=== PATIENT | female | born 1970 | race African-American/Black ===

== ENCOUNTER 2023-08-26 08:02 | Outpatient (AMB) | payer OTHER, SELFPAY ==
[2023-08-26 10:18] VITALS: BMI 30.7
--- NOTE | 2023-08-26 10:18 | A.OFFVIS_ITS ---
Intake VS Expanded 08/26/23 10:18 Height 5 ft 8.5 in Weight 205 lb BMI 30.7 Intake Visit Reasons: TV Gastric Balloon Allergies No Known Allergies Allergy (Verified 08/26/23 10:19) Medication List - Last Reconciled 08/26/23 by Jonah Briggs MD amlodipine 5 mg PO DAILY biotin 2,500 mcg PO DAILY citalopram 5 mg PO DAILY lactobacillus combination no.4 (Probiotic) 3,000 mmu cells PO DAILY metformin ER 500 mg PO BID valacyclovir 500 mg PO DAILY HPI TV Gastric Balloon HPI Details Start time: 10.13am, End time: 11.01am ?I spent 43 minutes speaking with the patient on the phone plus an additional 5 minutes reviewing and updating records for a total of 48 minutes HPI Comments History of Present Illness Details Is interested in the Orbera gastric balloon Has tried several diets in the past as well as Wegovy, Metformin and Phentermine without success PFSH Medical History (Updated 08/26/23 @ 10:51 by Jonah Briggs MD) Hyperlipidemia Depression Herpes simplex Prediabetes Hypertension Surgical History (Updated 08/26/23 @ 08:07 by Yuly Car CMA) Hx of eye surgery Hx of wisdom tooth extraction Hx of inguinal hernia surgery Assessment & Plan Assessment & Plan (1) Obesity: Code(s): E66.9 - Obesity, unspecified Plan: 1.? Plan for endogastric balloon therapy. We discussed the process in detailed including the need for endoscopy to place the balloon as well as to remove 6 months later under sedation or general anesthesia. We discussed the need to be on a PPI and a multivitamin throughout the balloon therapy. We discussed the potential risks and complications of the balloon including premature removal, premature balloon with potential balloon migration and bowel obstructions, gastric ulcer, GI bleeding, gastric or esophageal perforation, pancreatitis. Spe cifically for the premature balloon deflation we discussed the instillation of methylene blue into the balloon so in case of premature deflation the patient's urine would be discolored. We also discussed the potential symptoms the patient may experience the first few days until the stomach is fully adjusted to the balloon, including nausea, vomiting, abdominal cramping, GERD, dehydration that may require IV hydration, fatigue, lack of energy, excessive fullness, or burping. I reassured her that these symptoms are temporary and subside completely within the first week. We also discussed that the expected weight loss is about 25% of her initial weight which corresponds to about 51lbs. We also discussed the possibility of inadequate weight loss. I emphasized the importance of purchasing a body composition scale and the need for weekly weight measurements and communication with me. We also discussed the need for a proper nutritional plan that will include a combination of protein shakes, protein bars and a proper food-based meal. The patient will need to be on a liquid diet during the first week until the stomach is fully adjusted to the balloon as well as the last week before endoscopic removal so the stomach empties from any residual food. We also discussed the philosophy of the program that we use the balloon as a motivating factor to work with me and change slowly her lifestyle by improving her nutritional and exercise plan. This approach will maximize the weight loss from the balloon therapy and allow her to maintain her weight after the balloon is removed. Finally we discussed the importance of long-term follow- up in our practice in order to maintain her weight loss long-term. The patient is in agreement with the plan and wants to proceed with placement. 2. The patient will undergo a blood work a H pylori breath test. 3. We will get a copy of her most recent abdominal ultrasound 4. I gave her directions as to which body composition scale, protein shakes and bars she needs to buy prior to balloon placement. 5. Preop prescriptions were provided and explained the purpose of each one. Need to be purchased preop. Start Pantoprazole (after you do the H pylori test), 1 pill per day. Sucralfate, Levsin and Zofran are for after the procedure as needed. 6. Needs to purchase 1oz medicine cups . (2) BMI 30.0-30.9,adult: Code(s): Z68.30 - Body mass index [BMI] 30.0-30.9, adult (3) Hypertension: Code(s): I10 - Essential (primary) hypertension (4) Prediabetes: Code(s): R73.03 - Prediabetes Telehealth Telehealth Location of provider rendering services: practice address Location of patient: address on file Patient Identification confirmed using: Name, : Yes Telehealth method: voice only Patient verbally consented to treatment: Yes Patient verbally consented to billing insurance company: Yes Patient informed of any privacy concerns related to visit: Yes Minutes spent on Phone/Video with Pt.: 48 Coding Level of Care Code Tele New Pt Level 4 (14612) Diagnoses Obesity E66.9 BMI 30.0-30.9,adult Z68.30 Hypertension I10 Prediabetes R73.03 Time Spent (min) 48
== END 2023-08-26 11:02 | disposition home or self-care (01) ==
PROVIDERS: Visit Provider Surgery
DX: E66.9 Obesity, unspecified (principal); Z68.30 Body mass index [BMI] 30.0-30.9, adult; I10 Essential (primary) hypertension; R73.03 Prediabetes
CPT/HCPCS: 99443

== ENCOUNTER → 2023-08-26 08:02 | Outpatient (BNVA) | payer OTHER, SELFPAY | PROVIDERS: Visit Provider Surgery ==

== ENCOUNTER 2023-08-29 08:26 | Outpatient (AMB) | payer OTHER, SELFPAY ==
--- OUTSIDE RECORDS SUMMARY | 2023-08-29 08:27 | XMS_ITS | Continuity of Care Document ---
Author Name [facility] Address [address] [place] [address] Organization [facility] Address [address] [place] [address] Support Name Relationship Address Phone Genevieve Zimmerman Primary Care Provider [address] [address] Dayna Daniel Attending Provider [address] [place] [phone] Genevieve Zimmerman Primary Care Provider [address] [address] Dayna Daniel Attending Provider [address] [place] [phone] Allergies, Adverse Reactions, Alerts No known allergies. Medications Active Medications Medication Dose Units Route Sig Qty Start Date Status In structions Citalopram 20 MG ORAL Daily November 13, 2020 Active Valacyclovir 500 MG ORAL Daily June 01, 2021 Active Topiramate 25 MG ORAL .COMPLEX 60 August 10, 2021 Active 25 mg PO 1 tab po qhs x 2 weeks, then increase to bid; Phentermine 15 MG ORAL Every Morning 30 r 2020 Active Discontinued Medications Medication Dose Units Route Sig Qty Start Date Discontinued Date Status Instructions Citalopram 20 MG ORAL Daily 2020 2020 Discontin ued Take 1 tablet by mouth everyday Citalopram 20 MG ORAL Daily 2020 November 13, 2020 Discontin ued Hydrochlorothi azide 12.5 MG ORAL Daily July 18, 2021 August 10, 2021 Discontin ued Hydrochlorothi azide 12.5 MG ORAL Daily July 17, 2021 July 18, 2021 Discontin ued Naltrexone-Bup ropion [Contrave] 1 TAB ORAL Once 120 July 17, 2021 August 10, 2021 Discontin ued 1 tab po qd x 7 days, then increase to 1 tab bid, then 2 tab in AM, 1 tab pm, then 2 tab po bid Problem List Active Problems Medical Problem Onset Date Status Physical exam Active History of herpes simplex infection Active Never a smoker Active Anxiety Active Dermatosis papulosa nigra Active Hyperlipidemia Active Snoring Active Numbness and tingling of right arm Active Body mass index (BMI) of 30.0 to 30.9 in adult Active Postinflammatory hyperpigmentation Active Atrophoderma vermiculatum Active Acne vulgaris Active Problems related to inappropriate diet and eatin g habits Active Hypertension Active Obesity with body mass index (BMI) of 30.0 to 39 .9 Active Procedures No known history of procedures. Reason for Referral Reason for Referral Date Referral was Provided Provider Office Contact Location R20.0 - Anesthesia of skin,R20.2 - Paresthesia of skin June 01, 2021 Genevieve Fosterel [phone] [facility] [address] [place] [address] E66.9 - Obesity, unspecified June 01, [phone] [facility] [address] [place] [address] Relevant Diagnostic Tests and/or Laboratory Data Laboratory Results Test Date/Time Result Interp. Ref. Range Result Co mment White Blood Count June 01, 2021 12:40pm 5.6 x10^3/uL 3.8-11.3 Red Blood Count June 01, 2021 12:40pm 3.76 x10^6/uL Low 4.2-5.4 Hemoglobin June 01, 2021 12:40pm 11.1 g/dL Low 11.3-15.3 Hematocrit June 01, 2021 12:40pm 34.8 % 34.0-44.5 Mean Corpuscular Volume June 01, 2021 12:40pm 92.6 fL 80-100 Mean Corpuscular Hemoglobin June 01, 2021 12:40pm 29.5 pg 26.7-33.0 Mean Corpuscular Hemoglobin Concent June 01, 2021 12:40pm 31.9 g/dL 31.6-35.6 RDW Coefficient of Variation June 01, 2021 12:40pm 13.0 % 11.5-14.5 Platelet Count June 01, 2021 12:40pm 299 x10^3/uL 150-450 Mean Platelet Volume June 01, 2021 12:40pm 10.2 fL 7.4-13.5 Neutrophils (%) (Auto) June 01, 2021 12:40pm 51.0 % 38.0-84.0 Lymphocytes (%) (Auto) June 01, 2021 12:40pm 37.6 % 20.0-40.0 Monocytes (%) (Auto) June 01, 2021 12:40pm 9.1 % 3.0-13.0 Eosinophils (%) (Auto) June 01, 2021 12:40pm 1.4 % 0.0-6.0 Basophils (%) (Auto) June 01, 2021 12:40pm 0.9 % 0-2.0 Sodium Level June 01, 2021 12:40pm 142 MMOL/L 136-145 Potassium Level June 01, 2021 12:40pm 4.8 MMOL/L 3.5-5.1 Chloride Level June 01, 2021 12:40pm 105 MMOL/L 98-107 Carbon Dioxide Level June 01, 2021 12:40pm 30 mmol/L 20-31 Anion Gap June 01, 2021 12:40pm 7 4-14 Calcium Level June 01, 2021 12:40pm 9.6 mg/dL 8.7-10.4 Glucose Level June 01, 2021 12:40pm 86 MG/DL 74-106 Blood Urea Nitrogen June 01, 2021 12:40pm 13 mg/dL 9-23 Creatinine June 01, 2021 12:40pm 1.13 mg/dL High 0.55-1.02 Note new method and reference range effective 21 Estimated GFR (Non- June 01, 2021 12:40pm 50.8 Low 60- Estimated GFR units = mL/min/1.73 m??? IDMS traceable MDRD study equation Estimated GFR () June 01, 2021 12:40pm 61.5 60- Estimated GFR units = mL/min/1.73 m??? IDMS traceable MDRD study equation Total Protein June 01, 2021 12:40pm 7.0 g/dL 5.7-8.2 Albumin June 01, 2021 12:40pm 4.3 g/dL 3.2-4.8 Total Bilirubin June 01, 2021 12:40pm 0.6 mg/dL 0-1.2 Alkaline Phosphatase June 01, 2021 12:40pm 35 U/L Low 46-116 Aspartate Amino Transf (AST/SGOT) June 01, 2021 12:40pm 16 U/L 13-40 Alanine Aminotransferase (ALT/SGPT) June 01, 2021 12:40pm 11 U/L 7-40 Sulfasalazine ma y interfere with this assay, specimens should be drawn prior to dose. Cholesterol Level June 01, 2021 12:40pm 203 MG/DL High 0-199 HDL Cholesterol June 01, 2021 12:40pm 63.2 MG/DL High 40-59 Hemoglobin A1c June 01, 2021 12:40pm 5.4 % 4.0-5.6 NORMAL IS BELOW 5.7 %, CONFIRMED WITH REPEAT TESTING PREDIABETES IS 5.7 - 6.4 %, CONFIRMED WITH REPEAT TESTING DIABETES IS 6.5 % OR ABOVE, CONFIRMED WITH REPEAT TESTING BASED ON 2013 ADA GUIDELINES Estimated Average Glucose June 01, 2021 12:40pm 108 Triglycerides Level June 01, 2021 12:40pm 79 MG/DL 0-149 LDL Cholesterol, Calculated June 01, 2021 12:40pm 124 MG/DL High 0-99 <100 Optimal 100-129 Near or above optimal 130-159 Borderline high 160-189 High >=190 Very high Thyroid Stimulating Hormone (TSH) June 01, 2021 12:40pm 3.158 mIU/mL 0.3-4.0 Chief Complaint and Reason for Visit Encounter Admit Date Chief Complaint Reason for V isit Registered Physician/Provider Office Visit August 10, 2021 1:08pm Tele [phone] Hypertension Body mass index (BMI) of 30.0 to 30.9 in adult Hyperlipidemia Obesity with body mass index (BMI) of 30.0 to 39.9 Hospital Discharge Instructions No known hospital discharge instructions. Hospital Discharge Medications Medication Dose Units Route Sig Qty Days Order Date Status Ins tructions Citalopram 20 MG ORAL Daily 90 Octob er 2019 Discontinued Take 1 tablet by mouth everyday Citalopram 20 MG ORAL Daily 90 Julob er 2019 Discontinued Citalopram 20 MG ORAL Daily 2020 Active Hydrochlorothiaz zaki 12.5 MG ORAL Daily 90 July 18, 2021 Discontinued Valacyclovir 500 MG ORAL Daily Aug ust 2020 Active Hydrochlorothiaz zaki 12.5 MG ORAL Daily 30 July 17, 2021 Discontinued Naltrexone-Bupro pion 1 TAB ORAL Once 120 July 17, 2021 Discontinued 1 tab po qd x 7 days, then increase to 1 tab bid, then 2 tab in AM, 1 tab pm, then 2 tab po bid Topiramate 25 MG ORAL .COMPLEX 60 Octo 2020 Active 25 mg PO 1 tab po qhs x 2 weeks, then increase to bid; Phentermine 15 MG ORAL Every Morning August 10, 2021 Active Encounters Encounter Facility Location Admit/Visit Date Discharge/Departure Date Attending Provider Registered Physician/Pro vider Office Visit [facility] August 10, 2021 1:08pm Dayna Daniel Departed Physician/Pro vider Office Visit [facility] July 17, 2021 9:11am July 17, 2021 10:18am Dayna Daniel Registered Referred [facility] July 06, 2021 10:41am Genevieve Zimmerman Registered Referred [address] [facility] 1 June 01, 2021 12:31pm Genevieve Zimmerman Registered Inpatient [facility] June 01, 2021 12:30pm Amada Stock Departed Physician/Pro vider Office Visit [facility] June 01, 2021 11:56am June 01, 2021 12:28pm Genevieve Zimmerman Registered Physician/Pro vider Office Visit [facility] September 15, 2020 12:00am Genevieve Zimmerman Encounter Diagnosis Onset Date Hypertension Body mass index (BMI) of 30.0 to 30.9 in adult Hyperlipidemia Obesity with body mass index (BMI) of 30 .0 to 39.9 Functional Status No known functional status. Immunizations No known immunizations. Plan of Care No Known Plan of Care Information Social History Query Response Date Recorded Comment NHANES social isolation score June 01 12:07pm Smoking Status Never smoker June 01, 2021 12:07pm Query Response Start Date Stop Date Smoking Status Never smoker Vital Signs Vital Reading Result Reference Range Collection Date/Time Height 5 ft 8 in August 10 4:22pm Weight 94.602 kg August 10 4:22pm Pulse 78 BPM 50-90 July 17 9:28am Pulse Oximetry 97 % 95-100 July 17, 2021 9:28am Blood Pressure Systolic 156 100-180 Jun 10:00am Blood Pressure Diastolic 84 70-85 [facility] 2020 10:00am Body Mass Index 31.7 August 10, 2021 4:22pm
--- OUTSIDE RECORDS SUMMARY | 2023-08-29 08:27 | XMS_ITS | Continuity of Care Document ---
Author Name [facility] Address [address] [place] [address] Organization [facility] Address [address] [place] [address] Support Name Relationship Address Phone Genevieve Zimmerman Primary Care Provider [address] [address] Genevieve Zimmerman Attending Provider [address] [address] Genevieve Zimmerman Primary Care Provider [address] [address] Genevieve Zimmerman Attending Provider [address] [address] Allergies, Adverse Reactions, Alerts No known allergies. Medications Active Medications Medication Dose Units Route Sig Qty Start Date Status In structions Citalopram 20 MG ORAL Daily November 13, 2020 Act yariel Valacyclovir 500 MG ORAL Daily June 01, 2021 Act yariel Discontinued Medications Medication Dose Units Route Sig Qty Start Date Discontinued Date Status Instructions Citalopram 20 MG ORAL Daily 2020 2020 Discontinued Take 1 tablet by mouth everyday Citalopram 20 MG ORAL Daily 2020 November 13, 2020 Discontinued Problem List Active Problems Medical Problem Onset [...] inappropriate diet and eatin g habits Active Obesity with body mass index (BMI) of 30.0 to 39 .9 Active Procedures No known history of procedures. Reason for Referral Reason for Referral Date Referral was Provided Provider Office Contact Location R20.0 - Anesthesia of skin,R20.2 - Paresthesia of skin June 01, 2021 Genevieve Fosterel [phone] [facility] [address] [address] E66.9 - Obesity, unspecified June 01, 2021 Genevieve [facility] [phone] [facility] [address] [address] Relevant Diagnostic Tests and/or Laboratory Data No known relevant diagnostic tests, laboratory data, and/or discharge summary. Chief Complaint and Reason for Visit Encounter Admit Date Chief Complaint Reason for V isit Departed Physician/Provider Office Visit June 01, 2021 11:56am Follow Up Numbness and tingling of right arm Anxiety Obesity with body mass index (BMI) of [...] 2019 Discontinued Citalopram 20 MG ORAL Daily 90 2020 Active Valacyclovir 500 MG ORAL Daily May us2020 Active Encounters Encounter Facility Location Admit/Visit Date Discharge/Departure Date Attending Provider Registered Referred [address] 1 June 01, 2021 12:31pm Genevieve Zimmerman Registered Inpatient [facility] June 01, 2021 12:30pm Amada Stock Departed Physician/Pro vider Office Visit [facility] June 01, 2021 11:56am June 01, 2021 12:28pm Genevieve Zimmerman Registered Physician/Pro vider Office Visit [facility] September 15, 2020 12:00am Genevieve Zimmerman Encounter Diagnosis Onset Date Numbness and tingling of right arm Anxiety Obesity with body mass index (BMI) of [...] Reference Range Collection Date/Time Height 5 ft 9 in June 01, 2021 12:01pm Weight 96.615 kg June 01, 2021 12:01pm Pulse 73 BPM 50-90 June 01, 2021 12:01pm Pulse Oximetry 98 % 95-100 June 01 12:01pm Blood Pressure Systolic 130 100-180 [facility] 2020 12:01pm Blood Pressure Diastolic 86 70-85 [facility] 2020 12:01pm Body Mass Index 31.4 June 01 12:01pm
--- OUTSIDE RECORDS SUMMARY | 2023-08-29 08:28 | XMS_ITS | Continuity of Care Document ---
Author Name [facility] Address [address] [place] [address] Organization [facility] Address [address] [place] [address] Support Name Relationship Address Phone Genevieve Zimmerman Primary Care Provider [address] [address] Genevieve Zimmerman Attending Provider [address] [address] Genevieve Zimmerman Primary Care Provider [address] [address] Genevieve Zimmerman Attending Provider [address] [address] Allergies, Adverse Reactions, Alerts No known allergies. Medications Active Medications Medication Dose Units Route Sig Qty Start Date Status Instructions Citalopram 20 MG ORAL Daily 90 December 08, 2021 Active Semaglutide (Weight Loss) [Wegovy] 1 MG SUBCUTANEOUS Every Week 2 January 14, 2022 Active administer weeks 9 through 12 of therapy Semaglutide (Weight Loss) [Wegovy] 1.7 MG SUBCUTANEOUS Every Week 3 January 14, 2022 Active administer weeks 13 through 16 of therapy Semaglutide (Weight Loss) [Wegovy] 0.25 MG SUBCUTANEOUS Every Week 2 December 19, 2021 Active administer weeks 1 through 4 of therapy Semaglutide (Weight Loss) [Wegovy] 0.5 MG SUBCUTANEOUS Every Week 2 December 19, 2021 Active administer weeks 5 through 8 of therapy Hydrochlorothiazide 25 MG ORAL Daily 90 2021 Active Valacyclovir 500 MG ORAL Daily June 01, 2021 Active Discontinued Medications Medication Dose Units Route Sig Qty Start Date Discontinued Date Status Instructions Citalopram 20 MG ORAL Daily 2020 2020 Discontin ued Take 1 tablet by mouth everyday Citalopram 20 MG ORAL Daily 90 2020 November 13, 2020 Discontin ued Citalopram 20 MG ORAL Daily 90 November 13, 2020 December 08, 2021 Discontin ued Hydrochlorothi azide 12.5 MG ORAL Daily 90 [facility] 2020August 10, 2021 Discontin ued Topiramate 25 MG ORAL Twice A Day 60 September 07, 2021 December 19, 2021 Discontin ued Phentermine 15 MG ORAL Every Morning 30 September 07, 2021 December 19, 2021 Discontin ued Citalopram 20 MG ORAL Daily December 08, 2021 December 08, 2021 Discontin ued Hydrochlorothi azide 12.5 MG ORAL Daily 30 [facility] 2020July 18, 2021 Discontin ued Naltrexone-Bup ropion [Contrave] 1 TAB ORAL [facility] 2020August 10, 2021 Discontin ued 1 tab po qd x 7 days, then increase to 1 tab bid, then 2 tab in AM, 1 tab pm, then 2 tab po bid Topiramate 25 MG ORAL .COMPLE X 60 August 10, 2021 September 07, 2021 Discontin ued 25 mg PO 1 tab po qhs x 2 weeks, then increase to bid; Phentermine 15 MG ORAL Every Morning 30 August 10, 2021 September 07, 2021 Discontin ued Problem List Active Problems Medical Problem Onset [...] Paresthesia of skin June 01, 2021 Genevieve Zimmerman [phone] [facility] [address] [place] [address] Relevant Diagnostic Tests and/or Laboratory Data Laboratory [...] (Non- June 01, 2021 12:40pm 50.8 Low >60 Estimated GFR units = mL/min/1.73 m??? IDMS traceable MDRD study equation Estimated GFR () June 01, 2021 12:40pm 61.5 >60 Estimated GFR units = mL/min/1.73 m??? IDMS [...] for V isit Departed Physician/Provider Office Visit December 19, 2021 8:06am Discuss options for weight loss meds Hypertension Body mass index (BMI) of 30.0 to 30.9 in adult Obesity with body mass index (BMI) of 30.0 to 39.9 Hospital Discharge Instructions No known hospital discharge instructions. Hospital Discharge Medications Medication Dose Units Route Sig Qty Days Order Date Status Instructions Citalopram 20 MG ORAL Daily 90 Octob er 2019 Discontinu ed Take 1 tablet by mouth everyday Citalopram 20 MG ORAL Daily 90 Julob er 2019 Discontinu ed Citalopram 20 MG ORAL Daily 90 2020 Discontinu ed Hydrochlorothia zide 12.5 MG ORAL Daily July 18, 2021 Discontinu ed Topiramate 25 MG ORAL Twice A Day 60 September 07, 2021 Discontinu ed Phentermine 15 MG ORAL Every Morning 30 September 07, 2021 Discontinu ed Citalopram 20 MG ORAL Daily 90 2021 Discontinu ed Citalopram 20 MG ORAL Daily 90 2021 Active Semaglutide (Weight Loss) 1 MG SUBCUTANEO US Every Week 2 January 14, 2022 Active administer weeks 9 through 12 of therapy Semaglutide (Weight Loss) 1.7 MG SUBCUTANEO US Every Week 3 January 14, 2022 Active administer weeks 13 through 16 of therapy Semaglutide (Weight Loss) 0.25 MG SUBCUTANEO US Every Week 2 December 19, 2021 Active administer weeks 1 through 4 of therapy Semaglutide (Weight Loss) 0.5 MG SUBCUTANEO US Every Week 2 December 19, 2021 Active administer weeks 5 through 8 of therapy Hydrochlorothia zide 25 MG ORAL Daily 90 December 19, 2021 Active Valacyclovir 500 MG ORAL Daily May us2020 Active Hydrochlorothia zide 12.5 MG ORAL Daily 30 July 17, 2021 Discontinu ed Naltrexone-Bupr opion 1 TAB ORAL Once 120 July 17, 2021 Discontinu ed 1 tab po qd x 7 days, then increase to 1 tab bid, then 2 tab in AM, 1 tab pm, then 2 tab po bid Topiramate 25 MG ORAL .COMPLEX 60 Octo 2020 Discontinu ed 25 mg PO 1 tab po qhs x 2 weeks, then increase to bid; Phentermine 15 MG ORAL Every Morning 30 August 10, 2021 Discontinu ed Encounters Encounter Facility Location Admit/Visit Date Discharge/Departure Date Attending Provider Departed Physician/Pro vider Office Visit [facility] December 19, 2021 8:06am December 19, 2021 10:50am Genevieve Zimmerman Departed Physician/Pro vider Office Visit [facility] August 10, 2021 1:08pm August 10, 2021 11:59pm Dayna Daniel Departed Physician/Pro vider Office Visit [facility] July 17, 2021 9:11am July 17, 2021 10:18am Dayna Daniel Registered Referred [facility] July 06, 2021 10:41am Genevieve Zimmerman Registered Referred [address] [facility] 1 June 01, 2021 12:31pm Genevieve Zimmerman Registered Inpatient [facility] June 01, 2021 12:30pm Amada Stock Departed Physician/Pro vider Office Visit [facility] June 01, 2021 11:56am June 01, 2021 12:28pm Genevieve Zimmerman Encounter Diagnosis Onset Date Hypertension Body mass index (BMI) of 30.0 to 30.9 in adult Obesity with body mass index (BMI) of [...] Collection Date/Time Height 5 ft 8 in December 19 8:12am Weight 96.757 kg December 19 8:12am Pulse 86 BPM 50-90 December 19 8:12am Pulse Oximetry 97 % 95-100 December 19, 2021 8:12am Blood Pressure Systolic 152 100-[address] [facility] 2021 8:12am Blood Pressure Diastolic 84 70-85 [facility] 2021 8:12am Body Mass Index 32.4 December 19, 2021 8:12am
--- OUTSIDE RECORDS SUMMARY | 2023-08-29 08:28 | XMS_ITS | Continuity of Care Document ---
Author Name [facility] Address [address] [place] [address] Organization [facility] Address [address] [place] [address] Support Name Relationship Address Phone Genevieve Zimmerman Primary Care Provider [address] [address] Genevieve Zimmerman Attending Provider [address] [address] Genevieve Zimmerman Primary Care Provider [address] [address] Genevieve Zimmerman Attending Provider [address] [address] Allergies, Adverse Reactions, Alerts No known allergies. Medications Active Medications Medication Dose Units Route Sig Qty Start Date Status Instructions Citalopram 20 MG ORAL Daily December 08, 2021 Active Semaglutide (Weight Loss) [Wegovy] 1.7 MG SUBCUTANEOUS Every Week January 14, 2022 Active administer weeks 13 through 16 of therapy Hydrochlorothiazide 25 MG ORAL Daily 90 2021 Active Valacyclovir 500 MG ORAL Daily June 01, 2021 Active Semaglutide (Weight Loss) [Wegovy] 2.4 MG SUBCUTANEOUS Every Week March 14, 2022 Active Discontinued Medications Medication Dose Units Route Sig Qty Start Date Discontinued Date Status Instructions Citalopram 20 MG ORAL Daily 2020 2020 Discontin ued Take 1 tablet by mouth everyday Citalopram 20 MG ORAL Daily 2020 November 13, 2020 Discontin ued Citalopram 20 MG ORAL Daily 90 November 13, 2020 December 08, 2021 Discontin ued Hydrochloroth iazide 12.5 MG ORAL Daily 90 [facility]2020August 10, 2021 Discontin ued Topiramate 25 MG ORAL Twice A Day 60 September 07, 2021 December 19, 2021 Discontin ued Phentermine 15 MG ORAL Every Mornin g 30 September 07, 2021 December 19, 2021 Discontin ued Citalopram 20 MG ORAL Daily 90 December 08, 2021 December 08, 2021 Discontin ued Semaglutide (Weight Loss) [Wegovy] 1 MG SUBCUTAN EOUS Every Week 2 January 14, 2022 March 14, 2022 Discontin ued administer weeks 9 through 12 of therapy Semaglutide (Weight Loss) [Wegovy] 0.25 MG SUBCUTAN EOUS Every Week 2 December 19, 2021 March 14, 2022 Discontin ued administer weeks 1 through 4 of therapy Semaglutide (Weight Loss) [Wegovy] 0.5 MG SUBCUTAN EOUS Every Week 2 December 19, 2021 March 14, 2022 Discontin ued administer weeks 5 through 8 of therapy Hydrochloroth iazide 12.5 MG ORAL Daily 30 [facility] 2020July 18, 2021 Discontin ued Naltrexone-Bu propion [Contrave] 1 TAB ORAL Once 120 [facility]2020August 10, 2021 Discontin ued 1 tab po qd x 7 days, then increase to 1 tab bid, then 2 tab in AM, 1 tab pm, then 2 tab po bid Topiramate 25 MG ORAL .COMPL EX 60 August 10, 2021 September 07, 2021 Discontin ued 25 mg PO 1 tab po qhs x 2 weeks, then increase to bid; Phentermine 15 MG ORAL Every Mornin g 30 August 10, 2021 September 07, 2021 Discontin ued Problem List Active Problems Medical Problem Onset Date Status Physical exam Active History of herpes simplex infection Active Never a smoker Active Morbid obesity Active Anxiety Active Dermatosis papulosa nigra Active Hyperlipidemia Active Snoring Active Numbness and tingling of right arm Active Body mass index (BMI) of 30.0 to 30.9 in adult Active BMI 31.0-31.9,adult Active Postinflammatory hyperpigmentation Active Atrophoderma vermiculatum Active [...] of skin June 01, 2021 Genevieve Zimmerman [phone] [facility] [address] [place] [address] Relevant Diagnostic Tests and/or Laboratory Data Laboratory [...] Chief Complaint Reason for V isit Registered Physician/Provide r Office Visit March 14, 2022 3:14pm 6 wk f/u BMI 31.0-31.9,adult Hypertension Morbid obesity Hospital Discharge Instructions No known hospital discharge instructions. Hospital Discharge Medications Medication Dose Units Route Sig Qty Days Order Date Status Instructions Citalopram 20 MG ORAL Daily 90 Octob er 2019 Discontinu ed Take 1 tablet by mouth everyday Citalopram 20 MG ORAL Daily 90 Octob er 2019 Discontinu ed Citalopram 20 MG ORAL Daily 90 2020 Discontinu ed Hydrochlorothia zide 12.5 MG ORAL Daily 90 July 18, 2021 Discontinu ed Topiramate 25 MG ORAL Twice A Day 60 September 07, 2021 Discontinu ed Phentermine 15 MG ORAL Every Morning 30 September 07, 2021 Discontinu ed Citalopram 20 MG ORAL Daily 90 2021 Discontinu ed Citalopram 20 MG ORAL Daily 90 2021 Active Semaglutide (Weight Loss) 1 MG SUBCUTANEO US Every Week 2 January 14, 2022 Discontinu ed administer weeks 9 through 12 of therapy Semaglutide (Weight Loss) 1.7 MG SUBCUTANEO US Every Week 3 January 14, 2022 Active administer weeks 13 through 16 of therapy Semaglutide (Weight Loss) 0.25 MG SUBCUTANEO US Every Week 2 December 19, 2021 Discontinu ed administer weeks 1 through 4 of therapy Semaglutide (Weight Loss) 0.5 MG SUBCUTANEO US Every Week 2 December 19, 2021 Discontinu ed administer weeks 5 through 8 of therapy Hydrochlorothia zide 25 MG ORAL Daily 90 December 19, 2021 Active Valacyclovir 500 MG ORAL Daily Aug ust 2020 Active Hydrochlorothia zide 12.5 MG ORAL Daily [...] MG ORAL Every Morning August 10, 2021 Discontinu ed Semaglutide (Weight Loss) 2.4 MG SUBCUTANEO US Every Week 3 March 14, 2022 Active Encounters Encounter Facility Location Admit/Visit Date Discharge/Departure Date Attending Provider Registered Physician/Pro vider [place] [facility] [place] 14, 2022 3:14pm Genevieve Zimmerman Departed Physician/Pro vider Office [place] [facility] [place] 19, 2021 8:06am December 19, 2021 10:50am Genevieve Zimmerman Departed Physician/Pro vider Office Visit [facility] August 10, 2021 1:08pm August 10, 2021 11:59pm Dayna Daniel Departed Physician/Pro vider Office Visit [facility] July 17, 2021 9:11am July 17, 2021 10:18am Dayna Daniel Registered Referred [facility] July 06, 2021 10:41am Genevieve Zimmerman Registered Referred [address] Lab 1 June 01, 2021 12:31pm Genevieve Zimemrman Registered Inpatient [facility] Lab June 01, 2021 12:30pm Amada Stock Departed Physician/Pro vider Office [place] [facility] [place] 01, 2021 11:56am June 01, 2021 12:28pm Genevieve Zimmerman Encounter Diagnosis Onset Date BMI 31.0-31.9,adult Hypertension Morbid obesity Functional Status No known functional status. Immunizations [...] Collection Date/Time Height 5 ft 8 in March 14, 2022 3: 31pm Weight 93.44 kg March 14, 2022 3: 31pm Pulse 80 BPM 50-90 March 14, 2022 3: 31pm Pulse Oximetry 99 % 95-100 March 14, 2022 3:31pm Blood Pressure Systolic 130 100-139 March 14, 2022 3:46pm Blood Pressure Diastolic 80 70-89 March 14, 2022 3:46pm Body Mass Index 31.3 March 14, 2022 3:31pm
--- OUTSIDE RECORDS SUMMARY | 2023-08-29 08:28 | XMS_ITS | Continuity of Care Document ---
Author Name [facility] Address [address] [place] [address] Organization [facility] Address [address] [place] [address] Support Name Relationship Address Phone Genevieve Zimmerman Primary Care Provider [address] [address] Dayna Daniel Attending Provider [address] [place] [phone] Genevieve Zimmerman Primary Care Provider [address] [address] Dayna Daniel Attending Provider [address] [place] [phone] Allergies, Adverse Reactions, Alerts No known allergies. Medications Active Medications Medication Dose Units Route Sig Qty Start Date Status In structions Citalopram 20 MG ORAL Daily November 13, 2020 Active Valacyclovir 500 MG ORAL Daily June 01, 2021 Active Hydrochlorothiazide 12.5 MG ORAL Daily 30 Jun Active Naltrexone-Bupropion [Contrave] 1 TAB ORAL Once 120 July 17, 2021 Active 1 tab po qd x 7 days, then increase to 1 tab bid, then 2 tab in AM, 1 tab pm, then 2 tab po bid Discontinued Medications Medication Dose Units Route Sig [...] of skin June 01, 2021 Genevieve Fosterel [phone] [facility] [address] [place] [address] E66.9 - Obesity, unspecified June 01, 2021 Genevieve Zimmerman [phone] [facility] [address] [place] [address] Relevant Diagnostic Tests and/or Laboratory Data Laboratory [...] for V isit Departed Physician/Provider Office Visit July 17, 2021 9:11am C appl rcvd Hypertension Body mass index (BMI) of 30.0 to 30.9 in adult Hyperlipidemia Obesity with body mass index (BMI) of 30.0 to 39.9 Hospital Discharge Instructions No known hospital discharge instructions. Hospital Discharge Medications Medication Dose Units Route Sig Qty Days Order Date Status Ins tructions Citalopram 20 MG ORAL Daily 90 Julob er 2019 Discontinued Take 1 tablet by mouth everyday Citalopram 20 MG ORAL Daily 90 Julob er 2019 Discontinued Citalopram 20 MG ORAL Daily 90 2020 Active Valacyclovir 500 MG ORAL Daily May ust 2020 Active Hydrochlorothiazi de 12.5 MG ORAL Daily July 17, 2021 Active Naltrexone-Buprop ion 1 TAB ORAL Once 120 July 17, 2021 Active 1 tab po qd x 7 days, then increase to 1 tab bid, then 2 tab in AM, 1 tab pm, then 2 tab po bid Encounters Encounter Facility Location Admit/Visit Date Discharge/Departure Date Attending Provider Departed Physician/Pro vider Office Visit [facility] July 17, 2021 9:11am July 17, 2021 10:18am Dayna Daniel Registered Referred [facility] [address] July 06, 2021 10:41am Genevieve Zimmerman Registered Referred [facility] [address] Lab 1 June 01, 2021 12:31pm Genevieve Zimmerman Registered Inpatient [facility] Lab June 01, 2021 12:30pm Amada Stock Departed Physician/Pro vider Office Visit [facility] June 01, 2021 11:56am June 01, 2021 12:28pm Genevieve Zimmerman Registered Physician/Pro vider Office Visit [facility] September 15, 2020 12:00am Genevieve Zimmerman [...] Collection Date/Time Height 5 ft 8 in July 17 9:28am Weight 95.028 kg July 17 9:28am Pulse 78 BPM 50-90 July 17 9:28am Pulse Oximetry 97 % 95-100 July 17, 2021 9:28am Blood Pressure Systolic 156 100-180 Sept ember 2020 10:00am Blood Pressure Diastolic 84 70-85 Sep tember 2020 10:00am Body Mass Index 31.8 June 9:28am
--- OUTSIDE RECORDS SUMMARY | 2023-08-29 08:28 | XMS_ITS | Continuity of Care Document ---
Author Name [facility] Address [address] [place] [address] Organization [facility] Address [address] [place] [address] Support Name Relationship Address Phone Genevieve Zimmerman Primary Care Provider [address] [address] Genevieve Zimmerman Attending Provider [address] [address] Genevieve Zimmerman Primary Care Provider [address] [address] Genevieve Zimmerman Attending Provider [address] [address] Allergies, Adverse Reactions, Alerts No known allergies. [...] Hydrochlorothi azide 12.5 MG ORAL Daily 90 [facility] 2020August 10, 2021 Discontin ued Topiramate 25 MG ORAL Twice A Day 60 September 07, 2021 December 19, 2021 Discontin ued Phentermine 15 MG ORAL Every Morning 30 September 07, 2021 December 19, 2021 Discontin ued Citalopram 20 MG ORAL Daily December 08, 2021 December 08, 2021 Discontin ued Hydrochlorothi azide 12.5 MG ORAL Daily 30 [facility] 2020July 18, 2021 Discontin ued Naltrexone-Bup ropion [Contrave] 1 TAB ORAL Once [facility] 2020[facility] 10, 2021 Discontin ued 1 [...] of skin June 01, 2021 Genevieve Zimmerman [phone] [facility] [address] [place] [address] Relevant Diagnostic Tests and/or Laboratory Data Laboratory [...] Attending Provider Departed Physician/Pro vider Office Visit [facility] December 19, 2021 8:06am December 19, 2021 10:50am Genevieve Zimmerman Departed Physician/Pro vider Office Visit [facility] August 10, 2021 1:08pm August 10, 2021 11:59pm Dayna Daniel Departed Physician/Pro vider Office Visit [facility] July 17, 2021 9:11am July 17, 2021 10:18am Dayna Daniel Registered Referred [facility] July 06, 2021 10:41am Genevieve Zimmerman Registered Referred [address] Lab 1 June 01, 2021 12:31pm Genevieve Zimmerman Registered Inpatient [facility] Lab June 01, 2021 12:30pm Amada Stock Departed Physician/Pro vider Office Visit [facility] June 01, 2021 11:56am June 01, 2021 [...] 8:12am Blood Pressure Systolic 152 100-180 Febr [facility] 2021 8:12am Blood Pressure Diastolic 84 70-85 Feb [facility] 2021 8:12am Body Mass Index 32.4 December 19, 2021 8:12am
--- OUTSIDE RECORDS SUMMARY | 2023-08-29 08:28 | XMS_ITS | Continuity of Care Document ---
Author Name Unknown Address [address] [place] [address] Phone Organization [facility] Address [address] [place] [address] Phone Support Name Relationship Address Phone Tio Batres Unknown [address] [address] MD Genevieve Zimmerman Attending Provider [facility] [place], [place] Amada Stock Attending Provider Unknown Unava ilable Chief Complaint and Reason for Visit Chief Complaint Appointment Follow Up Amb Documentation Reason for Visit Numbness and tinglin g of right arm Anxiety Obesity with body mass index (BMI) of 30.0 to 39.9 Allergies, Adverse Reactions, Alerts No known allergies Social History Smoking Status Status Start Date End Date Date of Observa tion Never smoked tobacco (finding) June 01, 2021 12:07pm Observation Status Observation Response Date of Response Smoking Status Never smoker June 01, 2021 12:07pm NHANES social isolation score Au 2020 12:07pm Additional Data Assigned Sex Female Family History Relationship Condition Age at Onset Recorded Date/T ghanshyam Not Specified Family history of es sential hypertension Unknown Problems Active Problems Medical Problem Onset Date Status [...] (BMI) of 30.0 to 39 .9 Active Medications Medication Status Dose Units Route Directions Qty Days St art Date End Date Instructions Citalopram Discontin ued 20 MG PO Daily 2020 11:09am Octobe r 2019 11:10a m Take 1 tablet by mouth everyday Citalopram Discontin ued 20 MG PO Daily 2020 11:10am 2020 12:10p m Citalopram Active 20 MG PO Daily 2020 12:09pm Valacyclovir Active 500 MG PO Daily 2020 12:00pm Vital Signs Vital Reading Result Reference Range Collection Date/Time Height 69 [in_i] June 01 12:01pm Weight 96.61 kg June 01 12:01pm Heart Rate 73 /min 50-90 June 01 12:01pm Oxygen saturation by Pulse oximetry 98 % 95-100 June 01, 2021 12: 01pm BP Systolic 130 mm[Hg] 100-180 June 01 12:01pm BP Diastolic 86 mm[Hg] 70-85 June 01 12:01pm BMI (Body Mass Index) 31.4 kg/m2 June 01, 2021 12:01pm Insurance Providers Guarantor Saroj Batres Address [address] [address] Contact Info. Home Phone: Payer Policy Id Coverage Id Subscriber's Name Subscriber Id Effective Date Expiration Date ER BAD DEBT SELF PAY [facility] [id number] Saroj Batres [id number] Encounters Encounter Location(s) Arrival/Admit Date Discharge/Depart Date Provider(s) Registered Physician/Provi antonieta Office Visit [facility] September 15, 2020 1:00am Genevieve Zimmerman MD Departed Physician/Provi antonieta Office Visit [facility] June 01, 2021 11:56am June 01, 2021 12:28pm Genevieve Zimmerman MD Non-patient / Non-visit [facility] June 01, 2021 12:30pm null Registered Referred [facility] [place] [address] St Lab June 01, 2021 12:31pm Genevieve Zimmerman MD Recent Diagnosis Onset Date Numbness and tingling of right arm Anxiety Obesity with body mass index (BMI) of 30 .0 to 39.9 Assessments Diagnosis Onset Date Resolution Status Numbness and tingling of right arm acute Anxiety chronic Obesity with body mass index (BMI) of 30.0 to 39.9 chronic Plan of Treatment Anxiety???continue Celexa Numbness and tingling of right upper extremity???obtain EMG Obesity???weight wellness program referral Mammography ordered Today with colonoscopy Follow-up as needed, she reports she resides in [place] Future Tests Future scheduled test information is unavailable Pending Tests Pending diagnostic test information is unavailable Future Visits Future appointment information is unavailable Referrals to Other Providers Reason for Referral Referral Start Date Provider Provider Contact Information Provider Address R20.0 - Anesthesia of skin,R20.2 - Paresthesia of skin June 01, 2021 [facility] Work Phone: [address] [facility] [address] E66.9 - Obesity, unspecified June 01, 2021 [facility] Work Phone: [address] [place] [address] Future Procedures Future procedure information is unavailable Future Medications Future medication information is unavailable Patient Instructions Patient instructions are unavailable
--- OUTSIDE RECORDS SUMMARY | 2023-08-29 08:28 | XMS_ITS | Continuity of Care Document ---
Author Name [facility] Address [address] [place] [address] Organization [facility] Address [address] [place] [address] Support Name Relationship Address Phone Genevieve Zimmerman Primary Care Provider [address] [address] Genevieve Zimmerman Attending Provider [address] [address] Genevieve Zimmerman Primary Care Provider [address] [address] Genevieve Zimmerman Attending Provider [address] [address] Allergies, Adverse Reactions, Alerts No known allergies. Medications Active Medications Medication Dose Units Route Sig Qty Start Date Status Instructions Citalopram 20 MG ORAL Daily December 08, 2021 Active Semaglutide (Weight Loss) [Wegovy] 0.25 MG SUBCUTANEOUS Every Week 2 December 19, 2021 Active administer weeks 1 through 4 of therapy Semaglutide (Weight Loss) [Wegovy] 0.5 MG SUBCUTANEOUS Every Week 2 December 19, 2021 Active administer weeks 5 through 8 of therapy Hydrochlorothiazide 25 MG ORAL Daily 2021 Active Valacyclovir 500 MG ORAL Daily [...] Hydrochlorothi azide 12.5 MG ORAL Daily 90 2020August 10, 2021 Discontin ued Topiramate 25 MG ORAL Twice A Day 60 September 07, 2021 December 19, 2021 Discontin ued Phentermine 15 MG ORAL Every Morning 30 September 07, 2021 December 19, 2021 Discontin ued Citalopram 20 MG ORAL Daily 90 December 08, 2021 December 08, 2021 Discontin ued Hydrochlorothi azide 12.5 MG ORAL Daily 30 2020July 18, 2021 Discontin ued Naltrexone-Bup ropion [Contrave] 1 TAB ORAL Once 120 2020August 10, 2021 Discontin ued 1 tab [...] of skin June 01, 2021 Genevieve Zimmerman [phone] [facility] [address] [place] [id number] Relevant Diagnostic Tests and/or Laboratory Data Laboratory [...] for V isit Registered Physician/Provider Office Visit December 19, 2021 8:06am [...] Daily 90 2021 Active Semaglutide (Weight Loss) 0.25 MG SUBCUTANEO US Every Week 2 December 19, 2021 Active administer weeks 1 through 4 of therapy Semaglutide (Weight Loss) 0.5 MG SUBCUTANEO US Every Week 2 December 19, 2021 Active administer weeks 5 through 8 of therapy Hydrochlorothia zide 25 MG ORAL Daily 90 December 19, 2021 Active Valacyclovir 500 MG ORAL Daily May ust 2020 Active Hydrochlorothia zide 12.5 MG ORAL Daily 30 July 17, 2021 Discontinu ed Naltrexone-Bupr opion 1 TAB ORAL Once 120 July 17, 2021 Discontinu ed 1 tab po qd x 7 days, then increase to 1 tab bid, then 2 tab in AM, 1 tab pm, then 2 tab po bid Topiramate 25 MG ORAL .COMPLEX 60 2020 Discontinu ed 25 mg PO 1 tab po qhs x 2 weeks, then increase to bid; Phentermine 15 MG ORAL Every Morning 30 August 10, 2021 Discontinu ed Encounters Encounter Facility Location Admit/Visit Date Discharge/Departure Date Attending Provider Registered Physician/Pro vider Office Visit [facility] December 19, 2021 8:06am Genevieve Zimmerman Departed Physician/Pro vider Office Visit [facility] August 10, 2021 1:08pm August 10, 2021 11:59pm Dayna Daniel Departed Physician/Pro vider Office Visit [facility] July 17, 2021 9:11am July 17, 2021 10:18am Dayna Daniel Registered Referred [facility] July 06, 2021 10:41am Genevieve Zimmerman Registered [facility] [address] Lab 1 June 01, 2021 12:31pm Genevieve Zimmerman [facility] June 01, 2021 12:30pm Amada Stock Departed Physician/Pro vider Office Visit [facility] June 01, 2021 11:56am June [...] 8:12am Blood Pressure Systolic 152 100-180 Febr ua 2021 8:12am Blood Pressure Diastolic 84 70-85 Feb ruary 2021 8:12am Body Mass Index 32.4 December 19, 2021 8:12am
--- OUTSIDE RECORDS SUMMARY | 2023-08-29 08:28 | XMS_ITS | Continuity of Care Document ---
Author Name [facility] Address [address] [place] [address] Organization [facility] Address [address] [place] [address] Support Name Relationship Address Phone Genevieve Zimmerman Primary Care Provider [address] [address] Genevieve Zimmerman Attending Provider [address] [address] Genevieve Zimmerman Primary Care Provider [address] [address] Genevieve Zimmerman Attending Provider [address] [address] Allergies, Adverse Reactions, Alerts No known allergies. Medications Active Medications Medication Dose Units Route Sig Qty Start Date Status Instructions Citalopram 20 MG ORAL Daily December 08, 2021 Active Hydrochlorothiazide 25 MG ORAL Daily 2021 Active Valacyclovir 500 MG ORAL Daily June 01, 2021 Active Semaglutide (Weight Loss) [Wegovy] 2.4 MG SUBCUTANEOUS Every Week 3 May 08, 2022 Active Discontinued Medications Medication Dose Units Route Sig Qty Start Date Discontinued Date Status Instructions Citalopram 20 MG ORAL Daily 2020 2020 Discontin ued Take 1 tablet by mouth everyday Citalopram 20 MG ORAL Daily 2020 November 13, 2020 Discontin ued Citalopram 20 MG ORAL Daily November 13, 2020 December 08, 2021 Discontin ued Hydrochloroth iazide 12.5 MG ORAL Daily 2020August 10, 2021 Discontin ued Topiramate 25 [...] therapy Semaglutide (Weight Loss) [Wegovy] 1.7 MG SUBCUTAN EOUS Every Week 3 January 14, 2022 May 08, 2022 Discontin ued administer weeks 13 through 16 of therapy [...] Hydrochloroth iazide 12.5 MG ORAL Daily 30 2020July 18, 2021 Discontin ued Naltrexone-Bu propion [Contrave] 1 TAB ORAL Once 120 2020August [...] 10, 2021 September 07, 2021 Discontin ued Semaglutide (Weight Loss) [Wegovy] 2.4 MG SUBCUTAN EOUS Every Week 3 March 14, 2022 May 08, 2022 Discontin ued Problem List Active Problems Medical Problem Onset Date Status Physical exam Active History of herpes simplex infection Active Never a smoker Active Morbid obesity Active Anxiety Active Dermatosis papulosa nigra Active Hyperlipidemia Active Lipoma of left upper extremity A ctive Numbness and tingling of right arm Active Body mass index (BMI) of 30.0 to 30.9 in adult Active BMI 31.0-31.9,adult Active Postinflammatory hyperpigmentation Active Atrophoderma vermiculatum Active Acne vulgaris Active Problems related to inappropriate diet and eatin g habits Active Hypertension Active Obesity with body mass index (BMI) of 30.0 to 39 .9 Active Inactive/Resolved Problems Medical Problem Onset Date Status Screening for malignant neoplasm of skin Resolved Snoring Inactive Procedures No known history of procedures. Reason for Referral Reason for Referral Date Referral was Provided Provider Office Contact Location D17.22 - Benign lipomatous neoplasm of skin and subcutaneous tissue of left arm May 08, 2022 Genevieve Zimmerman [phone] [facility] [address] [place] [id number] Relevant Diagnostic Tests and/or Laboratory Data Laboratory [...] for V isit Registered Physician/Provider Office Visit May 08, 2022 3:53pm Upper Left Arm Pain Lipoma of left upper extremity Hospital Discharge Instructions No known hospital discharge instructions. Hospital Discharge Medications Medication Dose Units Route Sig Qty Days Order Date Status Instructions Citalopram 20 MG ORAL Daily 90 er 2019 Discontinu ed Take 1 tablet by mouth everyday Citalopram 20 MG ORAL Daily 90 2019 Discontinu ed Citalopram 20 MG ORAL Daily 90 2020 Discontinu ed Hydrochlorothia zide 12.5 MG ORAL Daily July 18, 2021 Discontinu ed Topiramate 25 MG ORAL Twice A Day 60 September 07, 2021 Discontinu ed Phentermine 15 MG ORAL Every Morning September 07, 2021 Discontinu ed Citalopram 20 MG ORAL Daily 2021 Discontinu ed Citalopram 20 MG ORAL Daily 2021 Active Semaglutide (Weight Loss) 1 MG SUBCUTANEO US Every Week 2 January 14, 2022 Discontinu ed administer weeks 9 through 12 of therapy Semaglutide (Weight Loss) 1.7 MG SUBCUTANEO US Every Week 3 January 14, 2022 Discontinu ed administer weeks 13 through 16 of therapy [...] US Every Week 3 March 14, 2022 Discontinu ed Semaglutide (Weight Loss) 2.4 MG SUBCUTANEO US Every Week 3 May 08, 2022 Active Encounters Encounter Facility Location Admit/Visit Date Discharge/Departure Date Attending Provider Registered Physician/Pro vider Office Visit [facility] May 08, 2022 3:53pm Genevieve Zimmerman Departed Physician/Pro vider Office Visit [facility] March 14, 2022 3:14pm March 14, 2022 4:18pm Genevieve Zimmerman Departed Physician/Pro vider Office Visit [facility] December 19, 2021 8:06am December 19, 2021 10:50am Genevieve Zimmerman Departed Physician/Pro vider Office Visit [facility] August 10, 2021 1:08pm August 10, 2021 11:59pm Dayna Daniel Departed Physician/Pro vider Office Visit [facility] July 17, 2021 9:11am July 17, 2021 10:18am Dayna Daniel Registered Referred [facility] July 06, 2021 10:41am Genevieve Zimmerman Registered Referred [address] Lab 1 June 01, 2021 12:31pm Genevieve Zimmerman Registered Inpatient [facility] June 01, 2021 12:30pm Amada Stock Departed Physician/Pro vider Office Visit [facility] June 01, 2021 11:56am June 01, 2021 12:28pm Genevieve Zimmerman Encounter Diagnosis Onset Date Lipoma of left upper extremity Functional Status No known functional status. Immunizations [...] Collection Date/Time Height 5 ft 8 in May 08, 2022 4 :05pm Weight 92.079 kg May 08, 2022 4 :05pm Pulse 86 BPM 50-90 May 08, 2022 4 :05pm Pulse Oximetry 98 % 95-100 May 08, 2022 4:05pm Blood Pressure Systolic 120 100-139 May 08, 2022 4:05pm Blood Pressure Diastolic 81 70-89 Apr 4:05pm Body Mass Index 30.9 May 08 4:05pm
--- OUTSIDE RECORDS SUMMARY | 2023-08-29 08:28 | XMS_ITS | Continuity of Care Document ---
Author Name [facility] Address [address] [place] [address] Organization [facility] Address [address] [place] [address] Support Name Relationship Address Phone Genevieve Zimmerman Primary Care Provider [address] [address] Genevieve Zimmerman Attending Provider [address] [address] Genevieve Zimmerman Primary Care Provider [address] [address] Genevieve Zimmerman Attending Provider [address] [address] Allergies, Adverse Reactions, Alerts No known allergies. [...] Hydrochlorothi azide 12.5 MG ORAL Daily 90 [facility] 2020August 10, 2021 Discontin ued Topiramate 25 MG ORAL Twice A Day 60 September 07, 2021 December 19, 2021 Discontin ued Phentermine 15 MG ORAL Every Morning 30 September 07, 2021 December 19, 2021 Discontin ued Citalopram 20 MG ORAL Daily December 08, 2021 December 08, 2021 Discontin ued Hydrochlorothi azide 12.5 MG ORAL Daily 30 [facility] 2020July 18, 2021 Discontin ued Naltrexone-Bup ropion [Contrave] 1 TAB ORAL Once 120 [facility] 2020August 10, 2021 Discontin ued 1 tab [...] of skin June 01, 2021 Genevieve Zimmerman [phone] [facility] [address] [place] [id number] Relevant Diagnostic Tests and/or Laboratory Data Laboratory [...] Attending Provider Departed Physician/Pro vider Office Visit [facility] December 19, 2021 8:06am December 19, 2021 10:50am Genevieve Zimmerman Departed Physician/Pro vider Office Visit [facility] August 10, 2021 1:08pm August 10, 2021 11:59pm Dayna Daniel Departed Physician/Pro vider Office Visit [facility] July 17, 2021 9:11am July 17, 2021 10:18am Dayna Daniel Registered Referred [facility] July 06, 2021 10:41am Genevieve Zimmerman Registered Referred [address] Lab 1 June 01, 2021 12:31pm Genevieve Zimmerman Registered Inpatient [facility] June 01, 2021 12:30pm Amada Stock Departed Physician/Pro vider Office Visit [facility] June 01, 2021 11:56am June 01, 2021 [...] 8:12am Blood Pressure Systolic 152 100-180 [facility] 2021 8:12am Blood Pressure Diastolic 84 70-85 Feb [facility] 2021 8:12am Body Mass Index 32.4 December 19, 2021 8:12am
--- OUTSIDE RECORDS SUMMARY | 2023-08-29 08:28 | XMS_ITS | Continuity of Care Document ---
Author Name [facility] Address [address] [place] [address] Organization [facility] Address [address] [place] [address] Support Name Relationship Address Phone Genevieve Zimmerman Primary Care Provider [facility] [address] [phone] Genevieve Zimmerman Attending Provider [facility] [phone] Allergies, Adverse Reactions, Alerts No known allergies. Medications Active Medications Medication Dose Units Route Sig Qty Start Date Status In structions Citalopram 20 MG ORAL Daily November 13, 2020 Active Hydrochlorothiazide 12.5 MG ORAL Daily Jun Active Valacyclovir 500 MG ORAL Daily June 01, 2021 Active Naltrexone-Bupropion [Contrave] 1 TAB ORAL Once [...] 17, 2021 July 18, 2021 Discontin ued Problem List Active Problems [...] of skin June 01, 2021 Genevieve Fosterel [phone] [facility] [address] [place] [address] E66.9 - Obesity, unspecified June 01, 2021 Genevieve Zimmerman [phone] [facility] [address] [place] [address] Relevant Diagnostic Tests and/or Laboratory Data Laboratory [...] Chief Complaint Reason for V isit Registered Referred July 06, 2021 10:41am [facility] Discharge Instructions No known hospital discharge instructions. Hospital Discharge Medications Medication Dose Units Route Sig Qty Days Order Date Status Ins tructions Citalopram 20 MG ORAL Daily 90 Julob er 2019 Discontinued Take 1 tablet by mouth everyday Citalopram 20 MG ORAL Daily 90 Julob er 2019 Discontinued Citalopram 20 MG ORAL Daily 90 ry 2020 Active Hydrochlorothiazi de 12.5 MG ORAL Daily 90 July 18, 2021 Active Valacyclovir 500 MG ORAL Daily May ust 2020 Active Hydrochlorothiazi de 12.5 MG ORAL Daily 30 July 17, 2021 Discontinued Naltrexone-Buprop ion 1 TAB ORAL Once 120 July 17, 2021 Active 1 tab po qd x 7 days, then increase to 1 tab bid, then 2 tab in AM, 1 tab pm, then 2 tab po bid Encounters Encounter Facility Location Admit/Visit Date Discharge/Departure Date Attending Provider Departed Physician/Pro vider Office Visit [facility] July 17, 2021 9:11am July 17, 2021 10:18am Dayna Daniel Registered Referred [facility] July 06, 2021 10:41am Genevieve Zimmerman Registered Referred [address] Lab 1 June 01, 2021 12:31pm Genevieve Zimmerman Registered Inpatient [facility] June 01, 2021 12:30pm Amada Stock Departed Physician/Pro vider Office Visit [facility] June 01, 2021 11:56am June 01, 2021 12:28pm Genevieve Zimmerman Registered Physician/Pro vider Office Visit [facility] September 15, 2020 12:00am Genevieve Zimmerman Functional Status No known functional status. Immunizations [...]
--- NOTE | 2023-08-29 09:05 | A.OFFVIS_ITS ---
Intake VS Expanded 08/29/23 09:18 Height 5 ft 8.5 in Weight 205 lb BMI 30.7 Intake Visit Reasons: TV Pre Op Gastric Balloon 09/05/23 Allergies No Known Allergies Allergy (Verified 08/29/23 09:06) Medication List - Last Reconciled 08/29/23 by Jonah Briggs MD amlodipine 5 mg PO DAILY biotin 2,500 mcg PO DAILY citalopram 5 mg PO DAILY docusate sodium (Colace) 100 mg PO DAILY hyoscyamine sulfate (Levsin) 0.125 mg PO QID lactobacillus combination no.4 (Probiotic) 3,000 mmu cells PO DAILY ondansetron 4 mg PO Q6H pantoprazole 40 mg PO DAILY sucralfate (Carafate) 10 mL PO BID valacyclovir 500 mg PO DAILY HPI TV Pre Op Gastric Balloon 09/05/23 HPI Details Start time: 8.58am, End time: 9.28am ?I spent 25 minutes speaking with the patient on the phone plus an additional 5 minutes reviewing and updating records for a total of 30 minutes HPI Comments History of Present Illness Details This is her preoperative visit for the Orbera gastric balloon [facility] Medical History (Updated 08/26/23 @ 10:51 by Jonah Briggs MD) Hyperlipidemia Depression Herpes simplex Prediabetes Hypertension Surgical History (Updated 08/26/23 @ 08:07 by Yuly Car CMA) Hx of eye surgery Hx of wisdom tooth extraction Hx of inguinal hernia surgery Assessment & Plan Assessment & Plan (1) Obesity: Code(s): E66.9 - Obesity, unspecified Plan: 1.? Plan for endogastric balloon therapy. We discussed the process in detailed including the need for endoscopy to place the balloon as well as to remove 6 months later under sedation or general anesthesia. We discussed the need to be on a PPI and a multivitamin throughout the balloon therapy. We discussed the potential risks and complications of the balloon including premature removal, premature balloon with potential balloon migration and bowel obstructions, gastric ulcer, GI bleeding, gastric or esophageal perforation, pancreatitis. Specifically for the premature balloon deflation we discussed the instillation of methylene blue into the balloon so in case of premature deflation the patient's urine would be discolored. We also discussed the potential symptoms the patient may experience the first few days until the stomach is fully adjusted to the balloon, including nausea, vomiting, abdominal cramping, GERD, dehydration that may require IV hydration, fatigue, lack of energy, excessive fullness, or burping. I reassured her that these symptoms are temporary and subside completely within the first week. We also discussed that the expected weight loss is about 25% of her initial weight which corresponds to about 58lbs. We also discussed the possibility of inadequate weight loss. I emphasized the importance of purchasing a body composition scale and the need for weekly weight measurements and communication with me. We also discussed the need for a proper nutritional plan that will include a combination of protein shakes, protein bars and a proper food-based meal. The patient will need to be on a liquid diet during the first week until the stomach is fully adjusted to the balloon as well as the last week before endoscopic removal so the stomach empties from any residual food. We also discussed the philosophy of the program that we use the balloon as a motivating factor to work with me and change slowly her lifestyle by improving her nutritional and exercise plan. This approach will maximize the weight loss from the balloon therapy and allow her to maintain her weight after the balloon is removed. Finally we discussed the importance of long-term follow- up in our practice in order to maintain her weight loss long-term. The patient is in agreement with the plan and wants to proceed with placement. 2. The patient will undergo a blood work, EKG and we are waiting for the H pylori breath test result. 3. I gave her directions as to which body composition scale, protein shakes and bars she needs to buy prior to balloon placement and she has already purchased them, 4. Preop prescriptions were provided and explained the purpose of each one. Need to be purchased preop. Start Pantoprazole now as you get it from the pharmacy, 1 pill per day. Sucralfate, Levsin Colace and Zofran are for after the procedure as needed. 5. Needs to purchase 1oz medicine cups . 6. Avoid aspirin, motrin, Advil, Aleve, Ibuprofen, Naproxyn. Tylenol is OK. 7. She needs to purchase Gatorade zero, or Crystal light or Pedialyte or Propel 8. Will do basic preop blood work-up tomorrow Saturday08/30/23 fasting for 12 hours and is scheduled to see the Anesthesiologist prior to the day of surgery. 9. Importance of adherence to postop folllow-up and recommendations was underscored and she understands that. 10. Stop food and bars as of Saturday09/02/23 and continue with 3 Orgain protein shakes (ONE scoop EACH in 8oz water) at 9am-11am, 12pm-2pm and 3pm-5pm and 2 more Orgain protein shakes with TWO scoops each in 8oz almond milk at 6pm-8pm and 9pm-11pm 11. No soups, broths or V8 12. Please take at the day of the procedure the following medications: only the Amlodipine with a small sip of water 13. Absolutely no smoking or vaping, or marijuana until the procedure and for at least the first 4 weeks. Only nicotine patches are allowed. 14. Send me weight measurements today or tomorrow morning and again on 09/05/23 at the day of the procedure before you go to the hospital. 15. Avoid any steroids by mouth for any reason. Let me know if someone prescribes them to you (2) BMI 30.0-30.9,adult: Code(s): Z68.30 - Body mass index [BMI] 30.0-30.9, adult (3) Hyperlipidemia: Code(s): E78.5 - Hyperlipidemia, unspecified (4) Hypertension: Code(s): I10 - Essential (primary) hypertension Orders: Orders ECG 12 lead EKG Today Z01.818 - Encounter for other preprocedural examination Medications: New pantoprazole 40 mg PO DAILY 30 tabs 2RF K21.9 - Gastro-esophageal reflux disease without esophagitis ondansetron Take one every 6 hours around the clock 4 mg PO Q6H 30 tabs 0RF nausea and vomiting R11.0 - Nausea hyoscyamine sulfate (Levsin) 0.125 mg PO QID 30 tabs 2RF R10.9 - Unspecified abdominal pain docusate sodium (Colace) 100 mg PO DAILY 30 caps 2RF K59.00 - Constipation, unspecified sucralfate (Carafate) 10 mL PO BID 400 mL 0RF K21.9 - Gastro-esophageal reflux disease without esophagitis Telehealth Telehealth Location of provider rendering services: practice address Location of patient: address on file Patient Identification confirmed using: Name, : Yes Telehealth method: voice only Patient verbally consented to treatment: Yes Patient verbally consented to billing insurance company: Yes Patient informed of any privacy concerns related to visit: Yes Minutes spent on Phone/Video with Pt.: 30 Coding Level of Care Code Tele Est Pt Level 4 (72049) Diagnoses Obesity E66.9 BMI 30.0-30.9,adult Z68.30 Hyperlipidemia E78.5 Hypertension I10 Time Spent (min) 30
[2023-08-29 09:18] VITALS: BMI 30.7
== END 2023-08-29 09:29 | disposition home or self-care (01) ==
LOC: HO.HBS 08:26
PROVIDERS: Visit Provider Surgery
DX: E66.9 Obesity, unspecified (principal); Z68.30 Body mass index [BMI] 30.0-30.9, adult; E78.5 Hyperlipidemia, unspecified; I10 Essential (primary) hypertension
CPT/HCPCS: 99499

== ENCOUNTER → 2023-08-29 08:26 | Outpatient (BNVA) | payer SELFPAY | PROVIDERS: Visit Provider Surgery ==

== ENCOUNTER 2023-09-05 12:10 | Day surgery (SDC) | payer OTHER, SELFPAY ==
--- NOTE | 2023-09-02 22:11 | P.HPSUR_ITS ---
Pre-Procedural Eval Section A Date of Service: 09/02/23 The patient is an INPATIENT: No The History & Physical has been completed within 30 days and I have reviewed it.: No Section B Chief Complaint: Morbid (severe) obesity due to excess calories Relevant Family History (Specify if Yes): No Relevant Social History: None Present Medications: None Medical History: No relevant PMH History of Previous Operations: No relevant previous surgery Allergies: Allergies Allergy/AdvReac Type Severity Reaction Status Date / Time No Known Allergies Allergy Verified 08/29/23 09:06 Review of Systems Sugical H&P ROS: Negative: Constitution, Cardiovascular, Respiratory, Neurological, Psychiatric, Hem-Onc, Allergic/Immunologic, Gastrointestinal, Genitourinary, Musculoskeletal, Integumentary, Endocrine and Eyes/Ears/Nose /Throat Exam Surgical H&P Exam: Normal: HEENT, Normal: Heart, Normal: Lungs, Normal: Extremities, Normal: Abdomen, Normal: Skin and Normal: Neurological Plan Diagnosis/Plan: Unchanged I have reviewed the history and physical and performed a pertinent physical examination on my patient. No changes have occurred unless specified. Time Spent With Patient Time: Total time managing care of this patient today ____ minutes.
[2023-09-03 11:13] VITALS: BMI 30.7
--- NOTE | 2023-09-04 10:08 | HO.ANESPROP2 ---
Documented by User: Roula Gibson NP 09/04/23 10:09 HPI - Anesthesia Eval Consult details Narrative: 53yo F for EGD Gastric Balloon Placement PMFSH Active Problems Active Problems: All Active Problems (Updated 08/31/23 @ 10:01 by Jonah Briggs MD) Vitamin B12 deficiency (Acute) Vitamin D deficiency (Acute) Hyperlipidemia (Acute) Depression (Acute) Herpes simplex (Acute) Prediabetes (Acute) Hypertension (Acute) BMI 30.0-30.9,adult (Acute) Obesity (Acute) Past Medical History Medical History Hyperlipidemia Depression Herpes simplex Prediabetes Hypertension Surgical History Surgical History Hx of eye surgery Hx of wisdom tooth extraction Hx of inguinal hernia surgery Social History Social History Patient Tobacco Use Status: Never used Tobacco Meds Allergies Allergy/AdvReac Type Severity Reaction Status Date / Time No Known Allergies Allergy Verified 09/05/23 12:18 Home Medications Medication Instructions Recorded Confirmed Last Taken Type amlodipine 5 mg tablet 5 mg PO DAILY 08/26/23 09/03/23 09/05/23 History biotin 2,500 mcg capsule 2,500 mcg PO DAILY 08/26/23 09/03/23 Unknown History citalopram 10 mg tablet 5 mg PO DAILY 08/26/23 09/03/23 Unknown History lactobacillus combination no.4 3 3,000 mmu cells PO DAILY 08/26/23 09/03/23 Unknown History billion cell capsule (Probiotic) valacyclovir 500 mg tablet 500 mg PO DAILY 08/26/23 09/03/23 Unknown History Exam Exam Date and Time: September 04, 2023 1008 Height,Weight and Vital Signs: Height 5 ft 8.5 in Weight 92.986 kg Assessment and Plan Assessment Anesthesia Assessment: Chart Reviewed Documented by User: Naatli Allan MD 09/05/23 12:29 [facility] Active Problems Active Problems: All Active Problems (Updated 09/05/23 @ 12:18 by Natali Allan MD) Vitamin B12 deficiency (Acute) Vitamin D deficiency (Acute) Hyperlipidemia (Acute) Depression (Acute) Herpes simplex (Acute) Prediabetes (Acute) Hypertension (Acute) BMI 30.0-30.9,adult (Acute) Obesity (Acute) Past Medical History Medical History Hyperlipidemia Depression Herpes simplex Prediabetes Hypertension Family History Family history of problems with anesthesia: No Surgical History Surgical History Hx of eye surgery Hx of wisdom tooth extraction Hx of inguinal hernia surgery History of Problems with Anesthesia: No Social History Social History Patient Tobacco Use Status: Never used Tobacco Meds Allergies Allergy/AdvReac Type Severity Reaction Status Date / Time No Known Allergies Allergy Verified 09/05/23 12:18 Home Medications Medication Instructions Recorded Confirmed Last Taken Type amlodipine 5 mg tablet 5 mg PO DAILY 08/26/23 09/03/23 09/05/23 History biotin 2,500 mcg capsule 2,500 mcg PO DAILY 08/26/23 09/03/23 Unknown History citalopram 10 mg tablet 5 mg PO DAILY 08/26/23 09/03/23 Unknown History lactobacillus combination no.4 3 3,000 mmu cells PO DAILY 08/26/23 09/03/23 Unknown History billion cell capsule (Probiotic) valacyclovir 500 mg tablet 500 mg PO DAILY 08/26/23 09/03/23 Unknown History Exam Height,Weight and Vital Signs: Height 5 ft 8.5 in Weight 92.986 kg Vital Signs Temp Pulse Resp BP Pulse Ox O2 Del Method 09/05/23 12:24 98.2 F 89 18 161/54 H 98 Room Air Airway Mallampati Class: II TM Dist: >3cm Loose/Missing/Broken Teeth: No (Denies broken, loose, missing teeth) Heart: RRR Lungs: CTAB Assessment and Plan Assessment Anesthesia Assessment: Anesthesia Plan Discussed Final Anesthetic Review Family History of Problems with Anesthesia: No History of Problems with Anesthesia: No NPO: Yes ASA Class: II Final Preanesthetic Review: No Changes in Pt Med Stat, Meds/Allgs Chart Reviewed, Consent Obtained/Reviewed and Anes Risks/Benef Reviewed Patient Risk: Low Procedure Risk: Low Assessment/Block/Sedation in SS: Assess/Block/Sedation-SS Anesthetic Plan Anesthetic Plan: MAC: Disposition: Standard PACU
[2023-09-05] VITALS (14 sets, daily range): BP systolic 116–161; BP diastolic 54–89; PULSE 77–106; RESP 16–18; TEMP 36.8–37; O2SAT 98–100
[2023-09-05] MEDS: Lactated Ringers 1,000 ML 100 ML IVCONT (12:32)
[2023-09-05] MEDS: Lactated Ringers 1,000 ML 999 ML IV (12:32)
[2023-09-05] MEDS: Aprepitant 32 MG/4.4 ML VIAL IVPUSH (12:32)
--- NOTE | 2023-09-05 12:46 | PM.OP ---
Brief Operative Note Date of Service: 09/05/23 Pre-op diagnosis: Obesity with comorbidities (see below) Post-op diagnosis: same Procedure: PROCEDURE DATE: 09/05/2023 PREOPERATIVE DIAGNOSIS: Severe obesity with a BMI of 30.7 kg/m2 comorbidities including non-insulin dependent diabetes, hypertension, herpes type II POSTOPERATIVE DIAGNOSIS: ?Same as above and distal gastritis PROCEDURE: [id number] with endoscopic Orbera Gastric balloon placement Surgeon: ?Ernesto Briggs M.D.. Ph.D. Training And Development Head: None ? Anesthesia: IV sedation Estimated blood loss: None FINDINGS AND PROCEDURE: ? OPERATIVE INDICATIONS: ?The patient is a 53 year old female known to me who is interested to lose weight. After a 28.3lbs (10.26% TBWL) pre-procedural weight loss, the patient is here today for endoscopic Orbera gastric balloon placement. We discussed with the patient preoperatively all available weight loss methods we offer and she opted to proceed with the Orbera gastric balloon. Risks and complications of the gastric balloon therapy were discussed with the patient in advance particularly the possibility of perforation or bleeding that may require surgical intervention, premature balloon deflation and bowel obstructions, gastric ulcer, esophageal injury, pancreatitis, dehydration, need for IV lfuids or premature endoscopic removal of the balloon. The patient understood the risks and was in agreement with the plan. ? PROCEDURE: After informed consent was obtained by the patient, the patient was ?transferred to the Operating Room and was placed in the supine position.? After successful induction of IV sedation, a mouth block was inserted and the patient was placed in the left lateral decubitus position. An upper endoscopy was performed next, the oropharynx and esophagus appeared within the normal limits. There was no obvious hiatal hernia. The z-line was smooth. The stomach was entered and it appeared to be of normal size. There was mild gastritis at distal antrum. There was no stricture or ulcer. The pylorus and proximal duodenum were visualized but I was not able to enter to the duodenum as the stomach was quite tortuous. A retroflexion was performed and no pathology was noted at thegastric fundus or near the GE junction. At that point the stomach was decompressed and the scope was withdrawn from the patient's mouth. The Orbera gastric balloon was passed transorally into the stomach. Once the balloon was advanced into the stomach, the gastroscope was re-inserted to confirm that the balloon catheter was in a good position and there was no injury to the esophagus or stomach. Once I confirmed all the above, the balloon was inflated under continuous endsocopic visualization with 575ml of sterile saline mixed with 3ml of methylene blue. Once the balloon was inflated, the catheter was pulled back and detached from the balloon itself without difficulty. The catheter was removed from the patient's mouth. The balloon was insepcted carefully with the gastroscope to make sure that it was in a good position and there was no obvious leak of fluid from the valve. The balloon was in a good position and there was no leak from the valve. At that point the stomach was decompressed and the scope was withdrawn from the patient's mouth while the stomach and esophagus were inspected again from any injuries. There were not any noted. The patient was awaken and was transferred in stable condition to the Recovery Room for further care. I was present and performed all steps of the procedure. There were no residents to assist with this case. Surgeon: Jonah Briggs MD Anesthesia: MAC Was an Training And Development Head used for this Procedure?: No Estimated blood loss (mL): 0 IV fluids (mL): 1,000 Urine output (mL): 0 (No Carreno to record output) Pathology: none sent Condition: stable Disposition: PACU
[2023-09-05] MEDS: Dextrose 5 % and 0.9 % NaCl 1,000 ML 500 ML IVCONT ×2 (13:49→17:57)
[2023-09-05] MEDS: Cyanocobalamin (Vitamin B-12) 1,000 MCG/ML VIAL 1000 MCG IM (14:04)
[2023-09-05] MEDS: Thiamine HCL 100 MG in 0.9 % Sodium Chloride 100 ML 202 MG IV (14:04)
[2023-09-05] MEDS: Folic Acid 1 MG in 0.9 % Sodium Chloride 50 ML 100.4 MG IV (14:38)
== END 2023-09-05 18:30 | disposition home or self-care (01) ==
PROVIDERS: Visit Provider Surgery
PROC: (CPT 43290; principal; 2023-09-05 13:50)
DX: E66.9 Obesity, unspecified (principal); Z68.30 Body mass index [BMI] 30.0-30.9, adult; I10 Essential (primary) hypertension; E78.5 Hyperlipidemia, unspecified; R73.03 Prediabetes; B00.9 Herpesviral infection, unspecified; F32.A Depression, unspecified; Z79.899 Other long term (current) drug therapy; Z98.890 Other specified postprocedural states
CPT/HCPCS: 43290; C1726; C9145; J2250; J2405; J2704; J3411; J3420; Q9968

== ENCOUNTER → 2023-09-05 12:10 | Outpatient (BNV) | payer SELFPAY | PROVIDERS: Visit Provider Surgery | DX: E66.01 Morbid (severe) obesity due to excess calories (principal) | CPT/HCPCS: 43290 ==

== ENCOUNTER 2023-09-13 08:17 | Outpatient (AMB) | payer OTHER, SELFPAY ==
[2023-09-13 10:57] VITALS: BP 108/72; PULSE 108; BMI 29.4
--- NOTE | 2023-09-13 10:57 | MHC.OFFVISWM ---
Intake VS Expanded 09/13/23 10:57 BP 108/72 Pulse 108 H Height 5 ft 8.5 in Weight 196 lb 8 oz BMI 29.4 Body Fat % 38.2 Body Fat Mass 75.2 Fat Free Mass 121.6 Visceral Fat Rating 12 Body Water % 42.4 Body Water Mass 83.4 Basal Metabolic Rate/Score 1,561 Intake Visit Reasons: TV Post Op Gastric Balloon 09/05/23 Allergies No Known Allergies Allergy (Verified 09/05/23 12:18) HPI TV Post Op Gastric Balloon 09/05/23 HPI Details Start time: 10.44am, End time: 11.04am ?I spent 15 minutes speaking with the patient on the phone plus an additional 5 minutes reviewing and updating records for a total of 20 minutes HPI Comments History of Present Illness Details Overall weight loss: 3.58lbs, or 1.82% TBWL Is doing 3 Orgain shakes with one scoop each in 8oz of vanilla flavored almond milk PFSH Medical History Hyperlipidemia Depression Herpes simplex Prediabetes Hypertension Surgical History Hx of eye surgery Hx of wisdom tooth extraction Hx of inguinal hernia surgery Social History Patient Tobacco Use Status: Never used Tobacco Assessment & Plan Assessment & Plan (1) Obesity: Code(s): E66.9 - Obesity, unspecified Plan: 1. Change nutritional plan to 2 Orgain protein shakes with TWO scoops in 8oz of water at 10-12 and 2-4 and one more Orgain shake with TWO scoops in 8oz low fat unsweetened almond milk at 10-12, 2-4 and 6-8 2. Send me your blood pressure daily 3. Do not use the Amlodipine 4. Continue Pantoprazole and multivitamins 5. We will begin the exercise plan once your blood pressure improves Telehealth Telehealth Location of provider rendering services: practice address Location of patient: address on file Patient Identification confirmed using: Name, : Yes Telehealth method: voice only Patient verbally consented to treatment: Yes Patient verbally consented to billing insurance company: Yes Patient informed of any privacy concerns related to visit: Yes Minutes spent on Phone/Video with Pt.: 20 Coding Level of Care Code Tele Est Pt Level 3 (57244) Diagnoses Obesity E66.9 Time Spent (min) 20
== END 2023-09-13 11:05 | disposition home or self-care (01) ==
PROVIDERS: Visit Provider Surgery
DX: E66.9 Obesity, unspecified (principal); Z68.29 Body mass index [BMI] 29.0-29.9, adult
CPT/HCPCS: 99442

== ENCOUNTER → 2023-09-13 08:17 | Outpatient (BNVA) | payer SELFPAY | PROVIDERS: Visit Provider Surgery ==

== ENCOUNTER 2023-09-30 12:00 | Day surgery (SDC) | payer SELFPAY ==
[2023-09-30] VITALS (8 sets, daily range): BP systolic 121–146; BP diastolic 65–80; PULSE 75–94; RESP 14–16; TEMP 36.4–36.8; O2SAT 98–100; BMI 28.5
[2023-09-30] MEDS: Lactated Ringers 1,000 ML 999 ML IV (13:12)
[2023-09-30] MEDS: ondansetron HCL 4 MG/2 ML VIAL IVPUSH (13:13)
--- NOTE | 2023-09-30 13:30 | P.HPSUR_ITS ---
Pre-Procedural Eval Section A Date of Service: 09/30/23 The patient is an INPATIENT: No The History & Physical has been completed within 30 days and I have reviewed it.: No Section B Chief Complaint: Morbid (severe) obesity due to excess calories Details of Present Illness: Balloon intolerance Relevant Family History (Specify if Yes): No Relevant Social History: None Present Medications: None Medical History: No relevant PMH History of Previous Operations: No relevant previous surgery Allergies: Allergies Allergy/AdvReac Type Severity Reaction Status Date / Time No Known Allergies Allergy Verified 09/05/23 12:18 Review of Systems Sugical H&P ROS: Negative: Constitution, Cardiovascular, Respiratory, Neurological, Psychiatric, Hem-Onc, Allergic/Immunologic, Gastrointestinal, Gen itourinary, Musculoskeletal, Integumentary, Endocrine and Eyes/Ears/Nose/Throat Exam Surgical H&P Exam: Normal: HEENT, Normal: Heart, Normal: Lungs, Normal: Extremities, Normal: Abdomen, Normal: Skin and Normal: Neurological Plan Diagnosis/Plan: Unchanged (Endoscopic gastric balloon removal for intolerance. Patient is in agreement with the plan.) I have reviewed the history and physical and performed a pertinent physical examination on my patient. No changes have occurred unless specified. Time Spent With Patient Time: Total time managing care of this patient today ____ minutes.
--- NOTE | 2023-09-30 13:45 | HO.ANESPROP2 ---
[facility] Active Problems Active Problems: All Active Problems (Updated 08/31/23 @ 10:01 by Jonah Briggs MD) Vitamin B12 deficiency (Acute) Vitamin D deficiency (Acute) Hyperlipidemia (Acute) Depression (Acute) Herpes simplex (Acute) Prediabetes (Acute) Hypertension (Acute) BMI 30.0-30.9,adult (Acute) Obesity (Acute) Past Medical History Medical History Hyperlipidemia Depression Herpes simplex Prediabetes Hypertension Family History Family history of problems with anesthesia: No Surgical History Surgical History Hx of eye surgery Hx of wisdom tooth extraction Hx of inguinal hernia surgery History of Problems with Anesthesia: No Social History Social History Patient Tobacco Use Status: Never used Tobacco Use of substances other than those prescribed or required for medical reasons: No Are you DNR?: No Advance Directives: No Advance Directives Information Provided: Yes Advance Directives on File: No Meds Allergies Allergy/AdvReac Type Severity Reaction Status Date / Time No Known Allergies Allergy Verified 09/05/23 12:18 Active Medications: Current Medications Lactated Ringer's (Lr) 1,000 mls @ 999 mls/hr IV .Q1H1M LINDA Stop: 09/30/23 14:30 Last Admin: 09/30/23 13:12 Dose: 999 mls/hr Home Medications Medication Instructions Recorded Confirmed Last Taken Type amlodipine 5 mg tablet 5 mg PO DAILY 08/26/23 09/30/23 09/05/23 History biotin 2,500 mcg capsule 2,500 mcg PO DAILY 08/26/23 09/30/23 Unknown History citalopram 10 mg tablet 5 mg PO DAILY 08/26/23 09/30/23 Unknown History lactobacillus combination no.4 3 3,000 mmu cells PO DAILY 08/26/23 09/30/23 Unknown History billion cell capsule (Probiotic) valacyclovir 500 mg tablet 500 mg PO DAILY 08/26/23 09/30/23 Unknown History Exam Height,Weight and Vital Signs: Height 5 ft 8 in Weight 85.049 kg Last Vital Signs Temp 97.5 F 09/30/23 12:48 Pulse 75 09/30/23 12:48 Resp 16 09/30/23 12:48 BP 135/69 09/30/23 12:48 Pulse Ox 98 09/30/23 12:48 O2 Del Method Room Air 09/30/23 12:48 Airway Mallampati Class: II TM Dist: >3cm Neck ROM: Full Loose/Missing/Broken Teeth: No Heart: RRR Lungs: CTA Assessment and Plan Assessment Anesthesia Assessment: Anesthesia Plan Discussed and Chart Reviewed Final Anesthetic Review Family History of Problems with Anesthesia: No History of Problems with Anesthesia: No NPO: Yes ASA Class: II Final Preanesthetic Review: Meds/Allgs Chart Reviewed, Consent Obtained/Reviewed and Anes Risks/Benef Reviewed Patient Risk: Low Procedure Risk: Low Anesthetic Plan Anesthetic Plan: GA Disposition: Standard PACU
--- NOTE | 2023-09-30 13:50 | PM.OP ---
Brief Operative Note Date of Service: 09/30/23 Pre-op diagnosis: Gastric balloon intolerance Post-op diagnosis: same Procedure: PROCEDURE DATE: 09/30/2023 PREOPERATIVE DIAGNOSIS: Patient wishes to remove the gastric balloon against medical advice POSTOPERATIVE DIAGNOSIS: ?Same as above PROCEDURE: [id number] with endoscopic Orbera Gastric balloon removal Surgeon: ?Ernesto Briggs M.D.. Ph.D. Phthalic Acid Purifier: None ? Anesthesia: IV sedation Estimated blood loss: None FINDINGS AND PROCEDURE: ? OPERATIVE INDICATIONS: ?The patient is a 53 year old female who underwent an endoscopic Orbera gastric balloon placement on 09/05/23. The patient wishes to remove the gastric balloon against medical advice. No complications have been observed. The patient understood the risks and was in agreement with the plan. ? PROCEDURE: After informed consent was obtained by the patient, the patient was ?transferred to the Operating Room and was placed in the supine position.? After successful induction of general anesthesia, the patient was placed in the left lateral decubitus position. An upper endoscopy was performed next, the oropharynx and esophagus appeared within the normal limits. There was no obvious hiatal hernia. The z-line was smooth. The stomach was entered and it appeared to be of normal size. There was evidence of some food and fluid. All fluid was aspirated from the stomach. The balloon was punctured with an endoscopic needle. All fluid was aspirated. The needle was removed and the balloon was grasped with a special 2-pronged endoscopic grasper and was removed from the mouth without difficulty. A follow-up endoscopy was done. There was no evidence of any injury into the stomach and the stomach was empty from fluid except some food the patient had eaten. At that point the stomach was decompressed and the scope was withdrawn from the patient's mouth while the stomach and esophagus were inspected again from any injuries. There were not any noted. The patient was awaken and was transferred in stable condition to the Recovery Room for further care. I was present and performed all steps of the procedure. There were no residents to assist with this case. Surgeon: Jonah Briggs MD Surgeon: Jonah Briggs MD Anesthesia: GETA Was an Phthalic Acid Purifier used for this Procedure?: No Estimated blood loss (mL): 0 IV fluids (mL): 1,000 Urine output (mL): 0 (No Carreno to record output) Pathology: other (Gastric balloon) Condition: stable Disposition: PACU
== END 2023-09-30 15:59 | disposition home or self-care (01) ==
PROVIDERS: PCP Physician Assistant Medical; Visit Provider Surgery
PROC: (CPT 43291; principal; 2023-09-30 14:00)
DX: Z46.51 Encounter for fitting and adjustment of gastric lap band (principal); E66.9 Obesity, unspecified; Z68.29 Body mass index [BMI] 29.0-29.9, adult; I10 Essential (primary) hypertension; R73.03 Prediabetes; E78.5 Hyperlipidemia, unspecified; E55.9 Vitamin D deficiency, unspecified; B00.9 Herpesviral infection, unspecified; Z79.899 Other long term (current) drug therapy
CPT/HCPCS: 43291; J0330; J1100; J2250; J2405; J2704; J3010

== ENCOUNTER → 2023-09-30 12:00 | Outpatient (BNV) | payer OTHER, SELFPAY | PROVIDERS: PCP Physician Assistant Medical; Visit Provider Surgery | DX: E66.9 Obesity, unspecified (principal) | CPT/HCPCS: 43291 ==

== ENCOUNTER 2023-10-22 15:03 | Outpatient (AMB) | payer OTHER, SELFPAY ==
--- NOTE | 2023-10-22 14:18 | MHC.OFFVISWM ---
Intake VS Expanded 10/22/23 14:20 Height 5 ft 8 in Weight 189 lb 3.2 oz BMI 28.8 Intake Visit Reasons: TV f/u MWL Allergies No Known Allergies Allergy (Verified 09/05/23 12:18) Medication List - Last Reconciled 10/22/23 by HEIDY Marrero biotin 2,500 mcg PO DAILY cholecalciferol (vitamin D3) 125 mcg PO DAILY citalopram 5 mg PO DAILY docusate sodium (Colace) 100 mg PO DAILY lactobacillus combination no.4 (Probiotic) 3,000 mmu cells PO DAILY mecobalamin (vitamin B12) 1,000 mcg sublingual DAILY metformin 1,000 mg PO BID pantoprazole 40 mg PO DAILY sucralfate (Carafate) 10 mL PO BID valacyclovir 500 mg PO DAILY HPI HPI Comments History of Present Illness Details 53 yo female is being seen in f/u for MWL. She had gastric balloon placed 09/05/23, removed 09/30/23. Weight today is 189.2 pounds with a BMI of 28.8. Previously doing low carbs, low sugar meal plan with [facility], had follow up with them last week and they are monitoring her blood sugars with the increase in Metformin to 1 gm BID. She states that she can do well with a structured plan but needs to be able to have variety in her exercise plan. She additionally feels as though switching to a superior may work out better for her. She has been using the ratio keto bar which she likes. Meal plan: 2-3 ZP bar english yogurt w blueberries. fish, veg, salad, chicken, eggs, not measuring the volume Exercise plan: nothing consistently treadmill, inconsistently step climber body weight tone classes. standing on vibrating plates. [facility] Medical History Hyperlipidemia Depression Herpes simplex Prediabetes Hypertension Surgical History Hx of eye surgery Hx of wisdom tooth extraction Hx of inguinal hernia surgery Social History Patient Tobacco Use Status: Never used Tobacco Assessment & Plan Assessment & Plan (1) Obesity: Code(s): E66.9 - Obesity, unspecified Plan: She is going to discuss with the provider who prescribed her the metformin to stop it as she would prefer not to be on metformin. [facility] She will change her meal plan: I so pure half scoop in 8 oz of unsweetened almond milk x2, ratio keto bar x1, meal with 8 forks of protein and 8 for some vegetables. She will continue her exercise, doing something daily with a goal of tracking her calories when she is able to when she uses the treadmill or step machine, goal of 300 calories daily. She additionally will continue using bodyweight toning exercise classes and potentially incorporating yoga. She will return to the office in 4 weeks time. Telehealth Telehealth Location of provider rendering services: practice address Location of patient: address on file Patient Identification confirmed using: Name, : Yes Telehealth method: voice only Patient verbally consented to treatment: Yes Patient verbally consented to billing insurance company: Yes Patient informed of any privacy concerns related to visit: Yes Minutes spent on Phone/Video with Pt.: 25 Coding Level of Care Code Tele Est Pt Level 3 (65747) Diagnoses Obesity E66.9 Time Spent (min) 30
[2023-10-22 14:20] VITALS: BMI 28.8
== END 2023-10-22 15:07 | disposition home or self-care (01) ==
LOC: HO.HBS 15:03
PROVIDERS: PCP Physician Assistant Medical; Visit Provider Physician Assistant Surgical
DX: E66.9 Obesity, unspecified (principal); Z68.28 Body mass index [BMI] 28.0-28.9, adult
CPT/HCPCS: 99499

== ENCOUNTER → 2023-10-22 15:03 | Outpatient (BNVA) | payer OTHER, SELFPAY | PROVIDERS: PCP Physician Assistant Medical; Visit Provider Physician Assistant Surgical ==